=== PATIENT | female | born 1995 | race Caucasian/White ===

== ENCOUNTER 2021-04-11 16:14 | Emergency (ER) | payer BC ==
--- NOTE | 2021-04-11 18:10 | EDM.PDOC ---
<Gage Steven - Last Filed: 04/11/21 18:08> ED HPI GENERAL MEDICAL PROBLEM - General Chief Complaint: Lower Extremity Injury/Pain Stated Complaint: LEG PAIN/NUMBNESS Time Seen by Provider: 04/11/21 17:53 - History of Present Illness INITIAL COMMENTS - FREE TEXT/NARRATIVE: 26-year-old female presents complaining of some discomfort in her left leg. She is 24 weeks and was concerned about a blood clot. No swelling in her leg. Is never had blood clots in the past. No recent travel or injury or cancer surgery. She is planning on going to [place] this coming weekend and wants to make sure she does not have a blood clot. No chest pain or shortness of breath. She does have some tingling that she has noticed down the leg. No history of any cancer or IV drug use. No bowel or bladder dysfunction or leg weakness. 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: Musculoskeletal History: Reports: None Neurological History: Reports: None Psychiatric History: Reports: None Endocrine/Metabolic History: Reports: None Hematologic History: Reports: None Immunologic History: Reports: None Oncologic (Cancer) History: Reports: None Dermatologic History: Reports: None - Infectious Disease History Infectious Disease History: Reports: None - Past Surgical History Head Surgeries/Procedures: Reports: None HEENT Surgical History: Reports: Tonsillectomy Social & Family History - Family History Family Medical History: No Pertinent Family History - Tobacco Use Tobacco Use Status *Q: Never Tobacco User - Caffeine Use Caffeine Use: Reports: None - Recreational Drug Use Recreational Drug Use: No Review of Systems - Review of Systems Constitutional: Denies: Chills, Fever Respiratory: Denies: Shortness of Breath Cardiovascular: Denies: Chest Pain GI/Abdominal: Denies: Abdominal Pain Genitourinary: Reports: No Symptoms Musculoskeletal: Reports: Leg Pain Skin: Reports: No Symptoms Neurological: Reports: Tingling ED EXAM, GENERAL - Physical Exam Exam: See Below Free Text/Narrative:: CONSTITUTIONAL: well appearing in no acute distress SKIN: dry, and intact without rash HENT: Normocephalic, atraumatic, NECK: normal range of motion PULMONARY: normal chest rise and fall, no respiratory distress or stridor NEUROLOGIC: normal speech, light touch and 5 out of 5 power bilateral equal and symmetric in her left lower extremity MUSCULOSKELETAL: no gross deformities, atraumatic no bony tenderness. No swelling to the leg. No midline lower thoracic lumbar vertebral tenderness PSYCHIATRIC: normal mood and affect Departure - Departure Disposition: Home, Self-Care 01 Clinical Impression: Musculoskeletal pain of left lower extremity - Discharge Information Instructions: Muscle Strain, [id number] Referrals: Magy Michel MD [Primary Care Provider] - 3 Days Forms: ED Department Discharge Additional Instructions: The need for follow-up, as well as the timing and circumstances, are variable depending upon the specifics of your emergency department visit. If you don't have a primary care physician on staff, we will provide you with a referral. We always advise you to contact your personal physician following an emergency department visit to inform them of the circumstance of the visit and for follow-up with them and/or the need for any referrals to a consulting specialist. The emergency department will also refer you to a specialist when appropriate. This referral assures that you have the opportunity for follow-up care with a specialist. All of these measure are taken in an effort to provide you with optimal care, which includes your follow-up. Under all circumstances we always encourage you to contact your private physician who remains a resource for coordinating your care. When calling for follow-up care, please make the office aware that this follow-up is from your recent emergency room visit. If for any reason you are refused follow-up, please contact the [facility] Emergency Department at and asked to speak to the emergency department charge nurse. If you do not have a primary care doctor, please follow up with the clinics below within 3-5 days. Trey Monaco [facility] - Primary Care [address] [place] [id number] [facility] [address] [place] [address] Sepsis Event Note (ED) - Evaluation Sepsis Screening Result: No Definite Risk <[email or web address] - Last Filed: 04/11/21 20:30> ED HPI GENERAL MEDICAL PROBLEM - General Source of Information: Reports: Patient History Limitations: Reports: No Limitations Review of Systems - Review of Systems Review Of Systems: See Below (see dictation) Course - Vital Signs Last Recorded V/S: Last Vital Signs Temp 97.5 F 04/11/21 16:39 Pulse 97 04/11/21 16:39 Resp 18 04/11/21 16:39 BP 119/74 04/11/21 16:39 Pulse Ox 100 04/11/21 16:39 - Re-Assessments/Exams Free Text/Narrative Re-Assessment/Exam: 04/11/21 1900 This patient was signed out to me from Dr. Steven at this time. I promptly performed a detailed physical examination, my examination was performed after ED treatments were initiated by the signout provider. Patient has been under the care of the previous provider up until this point. 04/11/212027 US was negative for DVT. SHe is reassured and stable for discharge. I performed a repeat exam and did not appreciate new abnormal findings. Patient exhibits normal vital signs and has a normal gait on road test. I advised the patient to return to the ER for reevaluation if symptoms worsened, including fever, worsening pain, or any other worrisome symptoms. I instructed the patient to follow up with their PCP within 2-3 days. Departure - Departure Time of Disposition: 20:28 Condition: Good - Discharge Information *PRESCRIPTION DRUG MONITORING PROGRAM REVIEWED*: Not Applicable *COPY OF PRESCRIPTION DRUG MONITORING REPORT IN PATIENT BRUNO: Not Applicable Sepsis Event Note (ED) - Focused Exam Vital Signs: Vital Signs Temp Pulse Resp BP Pulse Ox 04/11/21 16:39 97.5 F 97 18 119/74 100
--- NOTE | 2021-04-11 19:56 | US ---
INDICATION: 26-year-old female presents with posterior left knee pain. TECHNIQUE: A compression venous ultrasound exam was performed of the left lower extremity using 2D thomas-scale imaging, color Doppler and spectral Doppler analysis. FINDINGS: Sonographic imaging of the left lower extremity demonstrates normal compressibility and color Doppler venous blood flow within the common femoral vein, deep femoral vein, and the proximal greater saphenous vein. Within the thigh, the femoral vein is patent and compressible. At a lower level, the popliteal, peroneal and posterior tibial veins also show normal compressibility and color Doppler venous blood flow. IMPRESSION: No evidence of deep vein thrombosis within the left lower extremity. Dictated by Amaury Dyer MD @ 04/11/2021 7:55:33 PM (Electronically Signed)
== END 2021-04-11 20:40 | disposition home or self-care (01) ==
LOC: MW.ED 16:14
DX: O99.891 Other specified diseases and conditions complicating pregnancy (principal); M79.662 Pain in left lower leg; Z3A.24 24 weeks gestation of pregnancy
CPT/HCPCS: 93971-26-LT; 93971-LT; 99283-25